=== PATIENT | female | born 1970 | race Caucasian/White ===

== ENCOUNTER 2021-04-29 17:33 | Emergency (ER) | payer BC, SELFPAY ==
--- NOTE | ~2021-04-29 | XR_ITS ---
EXAMINATION: XR knee LT 3V DATE: 04/29/2021 18:17 INDICATION: Left knee pain TECHNIQUE: Four views of the left knee were obtained. COMPARISON: None. FINDINGS: Alignment is normal. No fracture or osteochondral lesion. There is mild tricompartmental os teoarthritis characterized by tiny marginal osteophytes. No joint effusion/synovitis. Soft tissues a re unremarkable. IMPRESSION: 1. No acute osseous abnormality. Reviewed, dictated and finalized at location A.
[2021-04-29 17:38] VITALS: BP 147/91; PULSE 109; RESP 18; TEMP 36.6; O2SAT 98
--- NOTE | 2021-04-29 18:02 | ED.LOWEXIN ---
HPI - Extremity Injury (Lower) General Chief Complaint: Extremity Injury, Lower Stated Complaint: knee popped,fell Source: patient and family Mode of arrival: ambulatory Limitations: no limitations History of Present Illness HPI Narrative: pt in ED after injuring knee. She was out on a run when she stepped down with left leg and felt a pop and had pain in left knee. She has been unable to bear weight on the knee at all since the injury. complaint: knee injury Onset (ago): hour(s) Place: street/outdoors Severity: severe Relieving factors: nothing Exacerbating factors: weight bearing and movement Context: running Associated symptoms: snap/pop sensation and unable to bear weight Other symptoms: none Related Data Allergies Allergy/AdvReac Type Severity Reaction Status Date / Time No Known Allergies Allergy Unverified 03/15/11 10:29 Review of Systems Review of Systems: All systems reviewed & are unremarkable except as noted in HPI and below PMFSH Family History Family History Father Hypertension Family history of elevated blood lipids Mother Hypertension Family history of elevated blood lipids Social History Social History Smoking status: Never smoker Alcohol intake: never Exam Const: General: no acute distress and alert Orientation/consciousness: patient oriented x3 HENMT: Head: normal to inspection Eyes: Conjunctivae: conjunctivae normal Neck: Neck: normal visual inspection Chest: Chest palpation & inspection: normal inspection of the chest Resp: Effort & Inspection: normal respiratory effort Auscultation: clear to auscultation bilaterally Cardio: Rate: regular rate Rhythm: regular rhythm GI: GI Palp: Yes Soft to palpation and No Tenderness to palpation present (GI) : General: Yes no CVA tenderness Back/Spine/Pelvis: Back: no CVA tenderness Skin: General skin exam: normal color Neuro: General: patient oriented x3 and moves all extremities Extrem: Other: LLE- knee tender with mild joint effusion. Pain with full straightening. And some pain along anterior tibia of joint. No ligamentous laxity appreciated. suspect miniscus injury Psych: Mental Status: mental status grossly normal Course Vital Signs Vital signs: Vital Signs Temperature 36.6 C 04/29/21 17:38 Pulse Rate 109 H 04/29/21 17:38 Respiratory Rate 18 04/29/21 17:38 Blood Pressure 147/91 H 04/29/21 17:38 Pulse Oximetry 98 04/29/21 17:38 Temperature 36.6 C 04/29/21 17:38 Pulse Rate 100 04/29/21 18:39 Respiratory Rate 20 04/29/21 18:39 Blood Pressure 147/91 H 04/29/21 17:38 Pulse Oximetry 100 04/29/21 18:39 Discharge Plan Discharge Clinical Impression: Injury, knee Qualifiers: Encounter type: initial encounter Laterality: left Qualified Code(s): S89.92XA - Unspecified injury of left lower leg, initial encounter Acute internal derangement of knee Qualifiers: Laterality: left Qualified Code(s): M23.92 - Unspecified internal derangement of left knee Patient Disposition: Home, Self-Care Condition: Stable Instructions: Knee Sprain (ED), Knee Immobilizer (ED) Prescriptions: New (DME) crutch Misc See Rx Instructions .Route Qty: 2 RF: 0 Follow-up/Referrals: Lyn Benítez MD [Primary Care Provider] - Stand Alone Forms: Work/School Release IP Time of Disposition: 18:30
[2021-04-29 18:39] VITALS: PULSE 100; RESP 20; O2SAT 100
== END 2021-04-29 18:49 | disposition home or self-care (01) ==
PROVIDERS: Emergency Provider Emergency Medicine; PCP Family Medicine
DX: S89.92XA Unspecified injury of left lower leg, initial encounter (principal); M23.92 Unspecified internal derangement of left knee
CPT/HCPCS: 73562; 99283; L1830

== ENCOUNTER 2021-05-04 15:02 | Outpatient (CLI) | payer BC, SELFPAY ==
--- NOTE | ~2021-05-04 | MR_ITS ---
EXAMINATION: MR knee LT wo con DATE: 05/04/2021 16:20 INDICATION: Unspecified internal derangement of the left knee with pain throughout the knee and radia ting down the posterior calf following running injury with audible pop. TECHNIQUE: Magnetic resonance imaging (MRI) of the left knee was performed without intravenous contra st. Sequences included coronal PD-weighted FSE, coronal PD-weighted FS FSE, sagittal T2-weighted FSE , sagittal PD-weighted FS FSE and axial PD weighted fat saturated FSE. COMPARISON: Left knee radiographs dated 04/29/2021 FINDINGS: Evaluation minimally limited by mild motion artifact or blurring on a few of the sequences, the most severely affected of which were repeated. Medial compartment: Full-thickness radial tear/avulsion at the posterior root of the medial meniscus. Articular cartilage is normal. Lateral compartment: Lateral meniscus is normal. Articular cartilage is normal. Patellofemoral compartment: Deep chondral ulceration with underlying cortical irregularity and subarticular edema at the patellar apical ridge and medial facet. Remaining cartilage in the patellofemoral compartment appears relativ krystyna preserved. Ligaments and tendons: Anterior and posterior cruciate ligaments are normal. The medial collateral ligament and fibular addis ateral ligament complex are normal. Mild patellar and distal quadriceps tendinopathy without discrete tear. The visualized medial and lateral hamstring tendons as well as the iliotibial band are normal. Fluid: Moderate-sized left knee joint effusion. Prepatellar edema without discrete bursal fluid collection. No loose osteochondral bodies identified. Osseous/other: There is some red marrow reexpansion in the distal metaphyseal diaphyseal region of the femur. Small low signal intensity bone island at the posteromedial aspect of the proximal tibia. No fracture or pa thologic marrow replacing process. There is nonspecific epimysial edema surrounding the distal aspect of the vastus medialis without discrete tear defect which could be related to low-grade strain. IMPRESSION: 1. Full-thickness tear/avulsion at the posterior root of the medial meniscus. 2. 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 3. Mild patellar and distal quadriceps tendinopathy without discrete tear. 4. Nonspecific edema surrounding the visualized distal vastus medialis which along with the moderate- sized left knee joint effusion could be reactive but cannot exclude a low-grade muscle strain. Reviewed, dictated and finalized at location A. IMPRESSION: 1. Full-thickness tear/avulsion at the posterior root of the medial meniscus. 2. 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 3. Mild patellar and distal quadriceps tendinopathy without discrete tear. 4. Nonspecific edema surrounding the visualized distal vastus medialis which al leo with the moderate-sized left knee joint effusion could be reactive but ambrocio ot exclude a low-grade muscle strain.
== END 2021-05-04 15:03 | disposition home or self-care (01) ==
LOC: ANHIMG 15:06
PROVIDERS: PCP Family Medicine; Visit Provider Family Medicine
DX: M17.12 Unilateral primary osteoarthritis, left knee (principal); S83.242A Other tear of medial meniscus, current injury, left knee, initial encounter; X58.XXXA Exposure to other specified factors, initial encounter
CPT/HCPCS: 73721

== ENCOUNTER 2021-09-26 14:54 | Outpatient (CLI) | payer BC, SELFPAY ==
--- NOTE | ~2021-09-26 | MM_ITS ---
EXAMINATION: MM screening palmira BI w [facility] HISTORY: Screening mammogram TECHNIQUE: Craniocaudal and mediolateral oblique 3-D tomosynthesis images were obtained and synthetic 2-D images were generated. CAD analysis was submitted and interpreted. COMPARISON: No prior mammogram is available for comparison at this institution. BREAST PARENCHYMAL COMPOSITION: There are scattered areas of fibroglandular density. FINDINGS: There is no evidence of suspicious mass, calcification, or architectural distortion to sugg est malignancy in either breast. IMPRESSION: 1. No mammographic evidence of malignancy. 2. Recommend routine screening mammography in one year. BI-RADS Category 1: Negative Reviewed, dictated and finalized at location A. O CLERK
== END 2021-09-26 14:55 | disposition home or self-care (01) ==
LOC: ANHIMG 14:56
PROVIDERS: PCP Family Medicine; Visit Provider Family Medicine
DX: Z12.31 Encounter for screening mammogram for malignant neoplasm of breast (principal)
CPT/HCPCS: 77063; 77067

== ENCOUNTER 2022-06-28 00:35 | Day surgery (SDC) | payer BC, SELFPAY ==
[2022-06-12 14:05] VITALS: BMI 30.2
[2022-06-28 08:23] VITALS: BP 126/68; PULSE 81; RESP 81; TEMP 36.1; O2SAT 100
--- NOTE | 2022-06-28 08:58 | PM.HPGS ---
History of Present Illness History of Present Illness Consent: Risks, benefits, and alternatives have been discussed and questions answered. Patient agrees to proceed with procedure. Chief complaint: neoplasm screening Narrative: Terri Souza is a 51 year old female Presents for screening colonoscopy. Patient's current weight appetite bowel movements are normal. Patient denies abdominal pain. She has had no bleeding. Family history is noncontributory. Review of Systems Review of Systems: Review of systems noncontributory. [facility] Past Medical History Medical History No significant past medical history Surgical History Surgical History No significant past surgical history Family History Family History Father Hypertension Family history of elevated blood lipids Mother Hypertension Family history of elevated blood lipids Unknown COPD (chronic obstructive pulmonary disease) CHF (congestive heart failure) Arthritis Sciatica Hypertension Social History Social History (Updated 04/22/22 @ 14:01 by Kassi Means) Social History: Smoking status: Never smoker Second hand tobacco smoke exposure: No Alcohol intake: current Drinks per week: 1 Alcohol use details: Occasionally Substance use: current Substance use type: does not use Living arrangements: with family Gender identity (if verbalized by the patient): Female Sexual Orientation (if Verbalized by the Patient): Straight or Heterosexual Spiritual care concerns: No Meds Home Medications and Allergies Home Medications Medication Instructions Recorded Confirmed Type sodium,potassium,mag sulfates 17.5 See Rx Instructions PO .COMPLEX 05/09/22 06/12/22 Rx gram-3.13 gram-1.6 gram oral soln #354 mL (Suprep Bowel Prep Kit) Allergies Allergy/AdvReac Type Severity Reaction Status Date / Time No Known Allergies Allergy Verified 06/28/22 08:22 Vital Signs Vital Signs - 24 hr 06/28/22 08:23 Temperature 96.9 F L Pulse Rate 81 Respiratory Rate 81 H Blood Pressure 126/68 Pulse Oximetry 100 Oxygen Delivery Room Air Exam Narrative: Physical exam reveals patient be alert. Vital signs stable. HEENT exam is unremarkable. Patient is anicteric. Lungs are clear to auscultation and percussion. Heart is without murmur or extra sounds. Abdomen bowel sounds are present soft nontender with no organomegaly. Digital external rectal exam is normal. Assessment and Plan Assessment and plan (1) Screening for colon cancer: Code(s): Z12.11 - Encounter for screening for malignant neoplasm of colon Status: Acute Assessment and Plan: Patient presents today for colon cancer screening colonoscopy. She appears to be at average risk for colon polyps. Further recommendations will be given after endoscopy.
--- NOTE | 2022-06-28 08:59 | WPDANESEPPF ---
Anes - Initial Pre Proc Eval Procedure: Operation Date: 06/28/22 09:30 Proposed Procedures p Screening Colonoscopy - Wang Morin MD Date/Time: 06/28/22 08:59 Surgeon: Wang Morin MD Pre Op Diagnosis: neoplasm screening Patient Data Age: 51 Gender: F Height: 1.55 m Weight: 79 kg Last Vital Signs Temp 36.1 C L 06/28/22 08:23 Pulse 81 06/28/22 08:23 Resp 81 H 06/28/22 08:23 BP 126/68 06/28/22 08:23 Pulse Ox 100 06/28/22 08:23 O2 Del Method Room Air 06/28/22 08:23 Allergies Allergy/AdvReac Type Severity Reaction Status Date / Time No Known Allergies Allergy Verified 06/28/22 08:22 Home Medications Medication Instructions Recorded Confirmed Type sodium,potassium,mag sulfates 17.5 See Rx Instructions PO .COMPLEX 05/09/22 06/12/22 Rx gram-3.13 gram-1.6 gram oral soln #354 mL (Suprep Bowel Prep Kit) Patient hx anesthesia problems: none Family hx anesthesia problems: none Results Review: All pre-operative results and documents have been reviewed as part of the pre-operative evaluation. [facility] Past Medical History Medical History No significant past medical history Surgical History Surgical History No significant past surgical history Family History Family History Father Hypertension Family history of elevated blood lipids Mother Hypertension Family history of elevated blood lipids Unknown COPD (chronic obstructive pulmonary disease) CHF (congestive heart failure) Arthritis Sciatica Hypertension Social History Social History Social History: Smoking status: Never smoker Second hand tobacco smoke exposure: No Alcohol intake: current Drinks per week: 1 Alcohol use details: Occasionally Substance use: current Substance use type: does not use Living arrangements: with family Gender identity (if verbalized by the patient): Female Sexual Orientation (if Verbalized by the Patient): Straight or Heterosexual Spiritual care concerns: No Anes - Eval Final PreProcedure Day of Procedure 06/28/22 08:59 Patient weight: obese Heart: regular rate and rhythm Lungs: clear to auscultation Airway: Mallampati scale Neurological: alert and oriented Last oral intake: >/= 8 hours ASA classification: II Emergent: no Anesthetic plan: proceed Anesthesia type and monitoring: general GIVS and standard monitoring Results Review: All pre-operative results and documents have been reviewed as part of the pre-operative evaluation. Informed Consent: The patient's anesthetic plan and its attendant risks and benefits were discussed with the patient/family/POA. Questions were solicited and answers provided to the satisfaction of the patient/family/POA.
[2022-06-28] MEDS: LACTATED RINGERS 1,000 ML 150 ML IV CONT (09:52)
[2022-06-28 09:53] VITALS: BP 119/72; PULSE 78; RESP 26; O2SAT 100
[2022-06-28 10:03] VITALS: BP 142/75; PULSE 75; RESP 21; O2SAT 99
[2022-06-28 10:13] VITALS: BP 124/77; PULSE 75; RESP 19; O2SAT 99
== END 2022-06-28 10:32 | disposition home or self-care (01) ==
PROVIDERS: PCP Family Medicine; Visit Provider Internal Medicine Gastroenterology
PROC: 0DJD8ZZ Inspection of Lower Intestinal Tract, Via Natural or Artificial Opening Endoscopic (ICD-10-PCS; CPT 45378; principal; 2022-06-28 09:30)
DX: Z12.11 Encounter for screening for malignant neoplasm of colon (principal); D12.3 Benign neoplasm of transverse colon; K62.1 Rectal polyp; K64.8 Other hemorrhoids; K57.30 Diverticulosis of large intestine without perforation or abscess without bleeding; E66.9 Obesity, unspecified; Z68.32 Body mass index [BMI] 32.0-32.9, adult
CPT/HCPCS: 45385; 88305; J2704; J7120

== ENCOUNTER → 2023-07-09 10:21 | Outpatient (CLI) | payer BC, SELFPAY ==
--- NOTE | ~2023-07-09 | MM_ITS ---
EXAMINATION: MM screening palmira BI w [facility] HISTORY: Screening TECHNIQUE: Craniocaudal and mediolateral oblique 3-D tomosynthesis images were obtained and synthetic 2-D images were generated. CAD analysis was submitted and interpreted. COMPARISON: No prior mammogram is available for comparison at this institution. BREAST PARENCHYMAL COMPOSITION: Breast composed of scattered areas of fibroglandular density FINDINGS: There are new focal asymmetry superiorly in the right breast on MLO view and laterally in t he left breast on CC view. There are no suspicious calcifications. IMPRESSION: 1. New bilateral breast asymmetries. 2. Additional mammographic views and possible breast ultrasound are recommended. BI-RADS Category 0: Incomplete: Needs additional imaging evaluation. Reviewed, dictated and finalized at location A. CRIMPER IMPRESSION: 1. New bilateral breast asymmetries. 2. Additional mammographic views and possible breast ultrasound are recommended . BI-RADS Category 0: Incomplete: Needs additional imaging evaluation.
== END ==
PROVIDERS: PCP Family Medicine; Visit Provider Family Medicine
DX: Z12.31 Encounter for screening mammogram for malignant neoplasm of breast (principal); R92.8 Other abnormal and inconclusive findings on diagnostic imaging of breast
CPT/HCPCS: 77063; 77067

== ENCOUNTER → 2023-07-11 14:13 | Outpatient (CLI) | payer BC, SELFPAY ==
--- NOTE | ~2023-07-11 | MMUS_ITS ---
EXAMINATION: MM diagnostic palmira BI w [facility]red[facility], US breast BI limited HISTORY: Follow-up bilateral breast asymmetries. TECHNIQUE: Additional 3-D tomosynthesis images of the breasts were performed and synthetic 2-D images were generated. CAD analysis was submitted and interpreted. High resolution limited bilateral breast ultrasound was performed. COMPARISON: 07/16 BREAST PARENCHYMAL COMPOSITION: Breast composed of scattered areas of fibroglandular density FINDINGS: MAMMOGRAPHIC FINDINGS: There are no suspicious masses, calcifications or architectural distortion in the right breast to sug gest malignancy. There is a focal 4 mm circumscribed mass in the mid outer aspect of the left breast, middle third. There are no suspicious calcifications or architectural distortion. ULTRASOUND: Limited right breast ultrasound: At 1:00, 3 cm from the nipple there is a 4 mm cyst. This corresponds to the area of concern seen on prior screening mammogram. Limited left breast ultrasound: At 1:00, 3 cm from the nipple there is an oval circumscribed parallel oriented hypoechoic 5 mm mass with low level internal echoes, no significant posterior features or i nternal vascularity, likely benign. This likely corresponds to the mammographic finding. IMPRESSION: 1. No evidence for malignancy in the right breast. Probable benign left breast mass at 1:00, 3 cm fro m the nipple. 2. Recommend 6 month follow-up diagnostic left mammogram and Limited breast ultrasound BI-RADS category 3, probably benign findings. Reviewed, dictated and finalized at location A. ESS EXPERT IMPRESSION: 1. No evidence for malignancy in the right breast. Probable benign left breast mass at 1:00, 3 cm from the nipple. 2. Recommend 6 month follow-up diagnostic left mammogram and Limited breast ult rasound BI-RADS category 3, probably benign findings.
== END ==
PROVIDERS: PCP Physician Assistant; Visit Provider Physician Assistant
DX: R92.8 Other abnormal and inconclusive findings on diagnostic imaging of breast (principal)
CPT/HCPCS: 76642; 77062; 77066; G0279

== ENCOUNTER 2024-02-06 09:16 | Outpatient (CLI) | payer BC, SELFPAY ==
--- NOTE | ~2024-02-06 | MMUS_ITS ---
EXAMINATION: MM diagnostic palmira LT w meredith, US breast LT limited HISTORY: Follow-up left breast mass TECHNIQUE: Additional 3-D tomosynthesis images of the left breast were performed and synthetic 2-D im ages were generated. CAD analysis was submitted and interpreted. High resolution Limited left breast ultrasound was performed. COMPARISON: Comparison to multiple prior studies sequentially, with oldest reviewed study dated 08/2021. BREAST PARENCHYMAL COMPOSITION: Not dense: There are scattered areas of fibroglandular density. FINDINGS: MAMMOGRAPHIC FINDINGS: There are no suspicious masses, calcifications or architectural distortion in the left breast to sugg est malignancy. The mass identified in the upper outer quadrant of the left breast is not visualized on the current study. ULTRASOUND: Limited left breast ultrasound: At 2:00, 4 cm from the nipple, there is a small intramammary lymph no de measuring 5 mm, unchanged from prior study. IMPRESSION: 1. No evidence for malignancy in the left breast. Benign findings. 2. Routine yearly screening mammogram and regular clinical breast examination are recommended. BI-RADS Category 2: Benign finding(s). Reviewed, dictated and finalized at location B. IMPRESSION: 1. No evidence for malignancy in the left breast. Benign findings. 2. Routine yearly screening mammogram and regular clinical breast examination a re recommended. BI-RADS Category 2: Benign finding(s).
== END 2024-02-06 09:17 ==
LOC: MICIMG 09:17
PROVIDERS: PCP Physician Assistant; Visit Provider Physician Assistant
DX: R92.8 Other abnormal and inconclusive findings on diagnostic imaging of breast (principal)
CPT/HCPCS: 76642; 77061; 77065; G0279